=== PATIENT | female | born 1930 | race Caucasian/White ===

== ENCOUNTER 2016-12-09 13:25 | Emergency (ER) | payer MEDICARE ==
[~2016-12-09] VITALS: Ht 157.5 cm; Wt 45.9 kg
[2016-12-09 13:27] VITALS: BP 156/70; PULSE 69; RESP 16; O2SAT 97
[2016-12-09 14:07] LABS: BASOPHILS % (AUTO) 0.8 % (0-3); EOSINOPHILS % (AUTO) 1.6 % (0-5); MONOCYTES % (AUTO) 7.1 % (4-12); Mean Corpuscular Hemoglobin 28.6 pg (27.0-35.0); Mean Corpuscular Volume 91.7 fL (81-100); NEUTROPHILS % (AUTO) 77.3 % (40-74); Platelet Count 136 bil/L (150-400)
[2016-12-09] MEDS ORDERED: 0.9% Sodium Chloride 1,000 ML IV ONE (14:07)
[2016-12-09 14:26] LABS: Magnesium 2.1 mg/dL (1.6-2.6)
[2016-12-09] MEDS: Ondansetron 2 mg/mL 2 mL Inj IVPUSH PRN ×2 (14:45→16:02)
--- NOTE | 2016-12-09 14:51 | ED.REPORT ---
HPI-General Illness Date of Service Dec 09, 2016 ED Provider: Lonnie El MD Patient is an 86 year old female with a hx of SBO, sleepy bowel, and cholecystectomy who presents to the ED complaining of diffuse abdominal pain and constipation for the last 5 days. Associated symptoms include nausea with her last BM 5 days ago. She denies vomiting, she is not sure if she is passing gas, she denies fevers, chills, or any other symptoms. She takes Percocet for chronic hip pain. She also has been taking Malox because she ran out of her other stool softeners. 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 Nursing Notes Stated Complaint: POSSIBLE BOWEL OBSTRUCTION Chief Complaint: Female Abdominal Pain Nursing Notes Reviewed: Yes Allergies: Coded Allergies: No Known Allergies (Unverified , 12/09/16) Scheduled Polyethylene Glycol 3350 (Miralax) 17 Gm Powd.pack 17 GM PO DAILY General Time Seen by MD: 14:03 Chief Complaint Abdominal pain Hx Obtained From: Patient Arrived By: Walk-in Sudden in Onset?: Yes Onset Occurred: 5 days ago Symptom Duration: Since onset Location: : Abdomen Quality: Painful Severity: Current: Moderate Severity: Maximum: Moderate Associated with: Reports: Nausea Additional Notes: constipation Pertinent Negative: Pt denies other symptoms Similar Sx Previous: Yes Past Medical History Past Medical History SBO Sleepy bowel Past Surgical History Open heart x3 Reports: Cholecystectomy, Hysterectomy Smoking History Unknown if Ever Smoker Review of Systems +trouble passing gas Full Review of Systems Constitutional: Denies: Chills, Fever GI: Reports: Abdominal pain, Constipation, Nausea, Denies: Vomiting Complete sys rev & neg: except as marked. Physical Exam Vital Signs Vital Signs Date Time Temp Pulse Resp B/P Pulse Ox O2 Delivery O2 Flow Rate FiO2 12/09/16 17:01 63 17 112/63 94 Room Air 12/09/16 16:02 61 14 132/66 98 Room Air 12/09/16 13:27 36.8 69 16 156/70 97 Room Air Initial VS: Reviewed, Vital signs abnormal Head / Eyes: Atraumatic, Normocephalic Neck: Full range of motion Skin: Warm, Dry Neurologic: Alert, Oriented, Nonfocal General/Constitutional: Awake, Alert, No acute distress Mouth: Positive: Mucous membranes dry Respiratory / Chest: Atraumatic, Breath sounds NL, Breath sounds = bilat, No respiratory distress Well healed sternotomy scar about anterior chest wall Cardiovascular: Heart rate NL, Regular rhythm, Heart sounds NL, No gallop, No murmurs, No rubs Trace pitting edema at the bilateral ankles Abdomen: Atraumatic, Soft, No guarding, No rebound Mild tenderness to the lower abdomen bilaterally no rigidity bowel sounds diminished Lower Extremity / Pelvis / MS: Neurologic intact, Vascular intact No palpable cords Good DP/ PT pulses Interpretation & Diagnostics Lab Results Interpretation Result Diagram: 12/09/16 1351 12/09/16 1351 Test 12/09/16 13:51 White Blood Count 3.8th/mm3 (3.8-10.1) Red Blood Count 3.36mil/mm3 (3.90-5.20) Hemoglobin 9.6g/dL (12.0-15.6) Hematocrit 30.8% (35.0-46.0) Mean Corpuscular Volume 91.7fL (81-100) Mean Corpuscular Hemoglobin 28.6pg (27.0-35.0) Mean Corpuscular Hemoglobin Concent 31.2% (32.0-37.0) Red Cell Distribution Width 17.0% (12.3-15.4) Platelet Count 136bil/L (150-400) Neutrophils (%) (Auto) 77.3% (40-74) Lymphocytes (%) (Auto) 13.2% (14-46) Monocytes (%) (Auto) 7.1% (4-12) Eosinophils (%) (Auto) 1.6% (0-5) Basophils (%) (Auto) 0.8% (0-3) Sodium Level 136mEq/L (134-144) Potassium Level 4.9mEq/L (3.5-5.2) Chloride Level 101mEq/L (97-108) Carbon Dioxide Level 22mmol/L (18-29) Blood Urea Nitrogen 24mg/dL (8-27) Creatinine 0.92mg/dL (0.57-1.00) Estimat Glomerular Filtration Rate 83mL/min (>59) Glucose Level 140mg/dL (60-99) Lactic Acid Level 1.2mmol/L (0.4-2.0) Calcium Level 9.1mg/dL (8.5-10.1) Magnesium Level 2.1mg/dL (1.6-2.6) Total Bilirubin 0.7mg/dL (0.0-1.2) Aspartate Amino Transf (AST/SGOT) 28U/L (0-50) Alanine Aminotransferase (ALT/SGPT) 13U/L (0-32) Alkaline Phosphatase 100U/L (25-165) Total Protein 6.9g/dL (6.4-8.4) Albumin 4.1g/dL (3.4-5.0) Lipase 17U/L (13-60) Hold Dalton Top Tube Received (Received) CT Abd / Pelvis Interpretation IMPRESSION: 1. No evidence of small bowel obstruction. 2. Trace free fluid in the pelvis of uncertain etiology. 3. The appendix is not definitely visualized, however no secondary signs of appendicitis identified adjacent to the cecum. 4. Liver has slightly nodular margins suspicious for hepatic cirrhosis. Please correlate with clinical and laboratory data. 5. Hepatic steatosis. 6. Severe cardiomegaly. Dictated by: Dory Mallory MD, PhD on 12/09/2016 at 16:17 Approved by: Dory Mallory MD, PhD on 12/09/2016 at 16:21 Study type: Abdominal CT IV contrast Interpretation / Wet Read by: Interpret - Radiologist Re-Eval/Medical Decision Med Decision/Clinical Course Patient is an 86 year old female with a hx of SBO, sleepy bowel, and cholecystectomy who presents to the ED complaining of diffuse abdominal pain and constipation for the last 5 days. Associated symptoms include nausea with her last BM 5 days ago. She denies vomiting, she is not sure if she is passing gas, she denies fevers, chills, or any other symptoms. She takes Percocet for chronic hip pain. She also has been taking Malox because she ran out of her other stool softeners. 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 Here in the emergency department the patient is afebrile, hemodynamically stable and in no apparent distress. The patient was treated with Zofran for nausea, hydromorphone for pain and IV fluids. CT abdomen pelvis: 1. No evidence of small bowel obstruction. 2. Trace free fluid in the pelvis of uncertain etiology. 3. The appendix is not definitely visualized, however no secondary signs of appendicitis identified adjacent to the cecum. 4. Liver has slightly nodular margins suspicious for hepatic cirrhosis. Please correlate with clinical and laboratory data. 5. Hepatic steatosis. 6. Severe cardiomegaly. Laboratory studies were obtained as below No leukocytosis Hematocrit 30.8 Lactic acid 1.2 CMP unremarkable At this time I see no evidence of small bowel obstruction or any acute surgical intra-abdominal process. Patient has been prescribed MiraLAX and will start to use this regularly. I have counseled her to discuss use of opiates for long- term pain with her primary care physician as it seems to be causing her a lot of issues with constipation. She is comfortable with this plan. Prior to discharge follow-up and return precautions were reviewed in detail with the patient who verbalized understanding and agreement with the plan. The patient was discharged in stable condition. Time of Eval: 16:38 Re-Evaluation/Progress Note: Discussed CT and lab results. Discussed plan for discharge with PCP f/u. chavezient understands and agrees with plan. All questions addressed at this time. Counseled Regarding: Diagnosis, Lab results, Need for follow-up, When/why to return to ED Discharge & Departure Primary Impression: Constipation Constipation type: unspecified constipation type Qualified Code: K59.00 - Constipation, unspecified Additional Impressions: retirement current use of opiate analgesic Abdominal pain Abdominal location: unspecified location Qualified Code: R10.9 - Unspecified abdominal pain Disposition: Home Discharge Condition All VS Reviewed: Yes Condition: Stable Additional Instructions: Thank you for seeking care at the emergency room. It is difficult for us to make definitive diagnoses in the ED but we believe that you are experiencing constipation. Your CT scan also shows some changes in your liver which may be cirrhosis. Please discuss this with your doctor. Our primary goal today in the ED was to evaluate you for any life-threatening conditions. Your evaluation was reassuring. You will be discharged with a prescription for MiraLax. Please take this daily with plenty of fluids. Consider reducing your Oxycodone usage to prevent future constipation. You should follow-up with your primary doctor in the next week. You should return to the ED immediately if you develop worsening constipation, abdominal pain, fevers, vomiting, cough, shortness of breath, chest pain, lightheadedness, weakness or any other concerning signs or symptoms. Thank you for letting us partake in your care today. Referrals: Misael Penaloza Attestation Portions of this note were transcribed by Lion Reyes. I, Dr. El personally performed the history, physical exam and medical decision-making; I reviewed and confirmed the accuracy of the information in the transcribed note. Signed by: Heather Escalante, 12/09/16 copies to: Misael Penaloza Beck O MD Dec 09, 2016 14:50 LION REYES Dec 09, 2016 14:58
[2016-12-09] MEDS: HYDROmorphone 0.5 mg/0.5 mL iSecure Syringe IVPUSH PRN ×2 (15:18→16:04)
[2016-12-09 16:02] VITALS: BP 132/66; PULSE 61; RESP 14; O2SAT 98
--- NOTE | 2016-12-09 16:23 | DRSVH ---
PROCEDURE: CT ABDOMEN AND PELVIS WITH CONTRAST ([id number]) INDICATIONS: abd pain, vomiting, h/o SBO TECHNIQUE: After the administration of intravenous contrast, 5 mm thick sections acquired from the diaphragm to the symphysis. 5 mm coronal and sagittal reformats were acquired. For radiation dose reduction, the following was used: automated exposure control, adjustment of mA and/or kV according to patient siz e. COMPARISON: None. FINDINGS: Image quality: Excellent. ABDOMEN: Lung bases: No acute lung opacities identified. Heart size is markedly enlarged. A mitral valve pr osthesis noted. Solid organs: Liver and spleen are normal in size and enhancement. Diffuse fatty infiltration of the liver is noted. Liver is slightly nodular margins. Gallbladder is surgically absent. Biliary syste m is non dilated. Pancreas enhances normally. No adrenal nodules. Kidneys demonstrate normal size and enhancement, without hydronephrosis. Bilateral renal cysts are noted. Peritoneum and bowel: Bowel loops demonstrate normal wall thickness and caliber. No free air. Trace free fluid noted in the lower pelvis. The appendix is not definitely visualized, however, no inflam matory changes are noted adjacent to the cecum. Nodes and vessels: No retroperitoneal or mesenteric adenopathy by size criteria. Aorta and inferior vena cava are normal in size. Scattered atherosclerotic calcifications are noted in the abdominal an d pelvic vasculature. Miscellaneous: No ventral hernias. PELVIS: Genitourinary: Bladder wall thickness is normal. Versus absent Miscellaneous: No inguinal hernias or adenopathy. Bones: No suspicious bony lesions. No vertebral body compression fractures. Spine degenerative dise ase and facet arthropathy noted. IMPRESSION: 1. No evidence of small bowel obstruction. 2. Trace free fluid in the pelvis of uncertain etiology. 3. The appendix is not definitely visualized, however no secondary signs of appendicitis identified adjacent to the cecum. 4. Liver has slightly nodular margins suspicious for hepatic cirrhosis. Please correlate with clini ronit and laboratory data. 5. Hepatic steatosis. 6. Severe cardiomegaly. Dictated by: Dory Mallory MD, PhD on 12/09/2016 at 16:17 Approved by: Dory Mallory MD, PhD on 12/09/2016 at 16:21
[2016-12-09] MEDS ORDERED: POLY17PO6 PO (16:35)
[2016-12-09 17:01] VITALS: BP 112/63; PULSE 63; RESP 17; O2SAT 94
== END 2016-12-09 17:04 | disposition home or self-care (01) ==
LOC: SED 13:25
DX: K59.00 Constipation, unspecified (principal); R10.84 Generalized abdominal pain; R11.0 Nausea; Z79.891 Long term (current) use of opiate analgesic; Z90.710 Acquired absence of both cervix and uterus; Z90.49 Acquired absence of other specified parts of digestive tract
CPT/HCPCS: 36415; 74177; 80053; 83605; 83690; 83735; 85025; 96361; 96374; 96375; 96376; 99285; J1170; J2405; J7030; Q9967